=== PATIENT | female | born 1940 | race Caucasian/White ===

== ENCOUNTER 2016-03-21 16:25 | Inpatient (IN) | payer OTHER ==
--- NOTE | 2016-03-21 17:20 | CPEKG ---
Heart Rate: 71 RR Interval: 845 P-R Interval: 164 QRSD Interval: 72 QT Interval: 400 QTC Interval: 435 P Mesa: 60 QRS Mesa: 18 T Wave Mesa: 27 EKG Severity - NORMAL ECG - EKG Impression: SINUS RHYTHM Electronically Signed By: Vijay Fox 21-Mar-2016 17:29:48
[2016-03-21 17:27] LABS: % IMMATURE GRANULYOCYTES 0.2 % (0.0-1.1); ABSOLUTE IMMATURE GRANULOCYTES 0.01 10^3/uL (0.00-0.10); ADD DIFF? NO; ADD MORPH? NO; ADD SCAN? NO; ATYPICAL LYMPHOCYTE FLAG 0 (0-99); FRAGMENT RBC FLAG 0 (0-99); HEMATOCRIT 43.7 % (38.0-47.0); HEMOGLOBIN 15.5 g/dL (12.6-16.3); LEFT SHIFT FLG 0 (0-99); LIPEMIA HEMOLYSIS FLAG 90 (0-99); MEAN CELL HEMOGLOBIN 32.2 pg (27.9-34.1); MEAN CELL HEMOGLOBIN CONCENTR. 35.5 g/dL (32.4-36.7); MEAN CELL VOLUME 90.9 fL (81.5-99.8); MEAN PLATELET VOLUME 9.4 fL (8.7-11.7); PLATELET CLUMPS FLAG 0 (0-99); PLATELET COUNT 185 10^3/uL (150-400); RED BLOOD CELL COUNT 4.81 10^6/uL (4.18-5.33); RED CELL DISTRIBUTION WIDTH 13.6 % (11.5-15.2)
--- NOTE | 2016-03-21 17:31 | EDPHY ---
H & P Stated Complaint: Intermittent tachycardia since Thu;sent here from [facility] for eval Time Seen by Provider: 03/21/16 17:05 HPI/ROS: CHIEF COMPLAINT: "'Left neck pulling," rapid heart rate HISTORY OF PRESENT ILLNESS: The patient is a 75 y/o female, with a significant cardiac history, complaining of a pulling sensation in her left neck and intermittent rapid heart rate since Thursday, 3 days ago. She notes some extreme fatigue on Thursday before symptom onset without associated fever or cough. She describes the pulling sensation as similar to previous angina episodes and denies chest pain. During this time she's experienced some elevated blood pressure readings in the 160s systolic and an episode of diaphoresis. Her last episode of rapid heart rate was this morning. She denies trauma, nausea, vomiting, leg pain or swelling, shortness of breath, rashes, or dysuria. She has not recently changed her medications. Her history including CAD with 3 stents, hypertension, and DVT. She had a normal perfusion study March 2015 during admission for chest pain. REVIEW OF SYSTEMS: Constitutional: denies: chills, fever, recent illness, recent injury EENTM: denies: blurred vision, double vision, nose congestion Respiratory: denies: cough, shortness of breath Cardiac: denies: chest pain, irregular heart rate, lightheadedness, palpitations Gastrointestinal/Abdominal: denies: abdominal pain, diarrhea, nausea, vomiting, blood streaked stools Genitourinary: denies: dysuria, frequency, hematuria, pain Musculoskeletal: denies: joint pain, muscle pain Skin: denies: lesions, rash, jaundice, bruising Neurological: denies: headache, numbness, paresthesia, tingling, dizziness, weakness Hematologic/Lymphatic: denies: blood clots, easy bleeding, easy bruising Immunologic/allergic: denies: HIV/AIDS, transplant PRIOR MEDICAL HISTORY: CAD, stents in RCA in 2013 and left circumflex 2014, cath from February 2015 showed 40% lesion left main and 30% lesion first diagonal, angina, cath April 2015 showed distal right coronary disease, hypertension, dyslipidemia, hypothyroidism, anxiety, DVT, gastritis, arthritis, bronchitis, salivary gland cancer 1979, IBS, Osteopenia, knee surgery, breast biopsy, cholecystectomy, hip replacement, hysterectomy SOCIAL HISTORY: at bedside. Nonsmoker. Brewery Representative: Dr. Francoise Sandy Prior medical records reviewed including admission 04/05/[address] for chest pain and Dr. Sandy's note from office visit today. EXAM: GENERAL: Well-appearing, well-nourished and in no acute distress. HEAD: Atraumatic, normocephalic. EYES: Pupils equal round and reactive to light, extraocular movements intact, sclera anicteric, conjunctiva are normal. ENT: TMs normal, nares patent, oropharynx clear without exudates. Moist mucous membranes. NECK: Normal range of motion, supple without lymphadenopathy or JVD. LUNGS: Breath sounds clear to auscultation bilaterally and equal. No wheezes rales or rhonchi. HEART: Regular rate and rhythm without murmurs, rubs or gallops. ABDOMEN: Soft, nontender, normoactive bowel sounds. No guarding, no rebound. No masses appreciated. BACK: No CVA tenderness, no spinal tenderness, step-offs or deformities EXTREMITIES: Normal range of motion, no pitting or edema. No clubbing or cyanosis. NEUROLOGICAL: Cranial nerves II through XII grossly intact. Normal speech, normal gait. 5/5 strength, normal movement in all extremities, normal sensation PSYCH: Normal mood, normal affect. SKIN: Warm, dry, normal turgor, no visible rashes or lesions. Source: Patient, RN/MD - Personal History Current Tetanus Diphtheria and Acellular Pertussis (TDAP): Yes Tetanus Vaccine Date: last 10 years - Medical/Surgical History Hx Asthma: No Hx Chronic Respiratory Disease: No Hx Diabetes: No Hx Cardiac Disease: Yes Hx Renal Disease: No Hx Cirrhosis: No Hx Alcoholism: No Hx HIV/AIDS: No Hx Splenectomy or Spleen Trauma: No Other PMH: MEDICAL-HTN, HYPOTHYRIOD. SURGERY- ORTHO, TONSILS, SAMIR, HYSTERECTOMY, STENT X2 last week - Family History Significant Family History: Heart disease - Social History Smoking Status: Former smoker Alcohol Use: Sober Drug Use: None Constitutional: Initial Vital Signs Temperature (C) 36.7 C 03/21/16 16:26 Heart Rate 79 03/21/16 16:26 Respiratory Rate 18 03/21/16 16:26 Blood Pressure 152/85 H 03/21/16 16:26 O2 Sat (%) 94 03/21/16 16:26 O2 Delivery Mode Room Air Allergies/Adverse Reactions: codeine [Codeine] Allergy (Intermediate, Verified 03/21/16 16:30) STOMACH PAIN flu shots Allergy (Unknown, Uncoded 03/21/16 16:30) Home Medications: Medication Instructions Recorded Metoprolol Tartrate [Lopressor 25 12.5 mg PO BID 06/29/14 mg (*)] Tears/Hypromellose [Natural 1 - 2 drops EACHEYE QID 01/10/15 Balance] Nitroglycerin [Nitrostat 0.4 mg 0.4 mg SL PRN PRN 02/24/15 (*)] amLODIPine BESYLATE [Norvasc 10 mg 10 mg PO DAILY #30 tab 02/25/15 (*)] Acetamn/Diphenhydramine 500/25 1 each PO HS 03/21/16 [Tylenol PM (*)] Ascorbic Acid [Vitamin C 500 mg 500 mg PO DAILY 03/21/16 (*)] Aspirin EC [Aspirin EC 81 mg (*)] 81 mg PO BID 03/21/16 Atorvastatin Calcium [Lipitor 10 5 mg PO DAILY18 03/21/16 mg (*)] Imipramine HCl [Tofranil] 10 mg PO DAILY PRN 03/21/16 Melatonin [Melatonin 3 MG (*)] 3 mg PO HS 03/21/16 Multivitamins [Multivitamin (*)] 1 each PO DAILY 03/21/16 Ranitidine HCl [Zantac] 150 mg PO BID 03/21/16 Thyroid,Pork [[place] Thyroid] 90 mg PO DAILY10 03/21/16 Medical Decision Making - Diagnostics EKG Interpretation: The 12 lead EKG was interpreted by myself. EKG shows sinus rhythm, no ischemia. See hard copy and/or "tracemaster" electronic copy for interpretation. Imaging: Study: Chest x-ray Indication: pain Results: Chest x-ray was obtained. The results of the study are Mild peribronchial thickening that could be related to bronchitis or mild fluid overload. The study was read by the radiologist, Dr. Christianson. I viewed the images myself on the PACS system. Study: CTA of the Chest Indication: Elevated d-dimer, pain Results: CTA scan of the chest was obtained. The results of the study are negative. The study was read by the radiologist, . I viewed the images myself on the PACS system. ED Course/Re-evaluation: MDM: IV established. Labs drawn including CBC, CHEM, troponin, d-dimer, TSH, T4. Plan for EKG and chest x-ray. Chest x-ray is unremarkable. D-dimer is elevated. Recommended CTA, which patient agreed to. 1838: CTA is negative. I discussed these results with the patient. She continues to have symptoms currently. Given her history, we agreed the best decision is to admit for further observation and testing. 19:50 I discussed the case with Dr. Dylan Pompa who will admit to the medical service. Differential Diagnosis: DIFFERENTIALS: Partial list of the Differential diagnosis considered include but were not limited to: [] and although unlikely based on the history and physical exam, I also considered []. I discussed these differential diagnoses and the plan with the [patient] as well as the usual and expected course. The [patient understands] that the diagnosis is provisional and that in medicine we are not always correct and that further workup is often warranted. Usual and customary warnings were given. All of the [patient's] questions were answered. The [ patient was] instructed to return to the emergency department should the symptoms at all worsen or return, otherwise to follow up with the physician as we discussed. - Data Points Laboratory Results: Laboratory Results 03/21/16 17:05 03/21/16 17:05 03/21/16 17:05 WBC 4.60 10^3/uL (3.80-9.50) RBC 4.81 10^6/uL (4.18-5.33) Hgb 15.5 g/dL (12.6-16.3) Hct 43.7 % (38.0-47.0) MCV 90.9 fL (81.5-99.8) MCH 32.2 pg (27.9-34.1) MCHC 35.5 g/dL (32.4-36.7) RDW 13.6 % (11.5-15.2) Plt Count 185 10^3/uL (150-400) MPV 9.4 fL (8.7-11.7) Neut % (Auto) 60.4 % (39.3-74.2) Lymph % (Auto) 24.8 % (15.0-45.0) [place] % (Auto) 12.4 % (4.5-13.0) Eos % (Auto) 1.5 % (0.6-7.6) Baso % (Auto) 0.7 % (0.3-1.7) Nucleat RBC Rel Count 0.0 % (0.0-0.2) Absolute Neuts (auto) 2.78 10^3/uL (1.70-6.50) Absolute Lymphs (auto) 1.14 10^3/uL (1.00-3.00) Absolute Monos (auto) 0.57 10^3/uL (0.30-0.80) Absolute Eos (auto) 0.07 10^3/uL (0.03-0.40) Absolute Basos (auto) 0.03 10^3/uL (0.02-0.10) Absolute Nucleated RBC 0.00 10^3/uL (0-0.01) Immature Gran % 0.2 % (0.0-1.1) Immature Gran # 0.01 10^3/uL (0.00-0.10) D-Dimer 0.63 H ug/mLFEU (0.00-0.50) Sodium 141 mEq/L (134-144) Potassium 3.5 mEq/L (3.5-5.2) Chloride 104 mEq/L (97-110) Carbon Dioxide 27 mEq/l (22-31) Anion Gap 10 mEq/L (8-16) BUN 15 mg/dL (7-23) Creatinine 0.6 mg/dL (0.6-1.0) Estimated GFR > 60 Glucose 78 mg/dL (70-100) Calcium 9.2 mg/dL (8.5-10.4) Troponin I < 0.012 ng/mL (0-0.034) TSH 2.470 uIU/mL (0.465-4.680) Free T4 0.82 ng/dL (0.59-2.19) Departure - Departure Disposition: [facility] Inpatient Acute Clinical Impression: Chest pain Qualifiers: Qualifier Code: (R07.89) Other chest pain Condition: Fair Report Scribed for: Vijay Fox Report Scribed by: Pam Contreras Date of Report: 03/21/16 Time of Report: 17:31
[2016-03-21 17:35] LABS: ANION GAP 10 mEq/L (8-16); CALCIUM 9.2 mg/dL (8.5-10.4); CARBON DIOXIDE 27 mEq/l (22-31); CHLORIDE 104 mEq/L (97-110); CREATININE 0.6 mg/dL (0.6-1.0); GLOMERULAR FILTRATION RATE > 60; GLUCOSE 78 mg/dL (70-100); POTASSIUM 3.5 mEq/L (3.5-5.2); SODIUM 141 mEq/L (134-144)
--- NOTE | 2016-03-21 17:41 | DX ---
Portable chest History: Chest pain, tachycardia. Comparison: PA and lateral chest April 05, 2015, CT chest January 23, 2014. Findings: There is mild peribronchial thickening without focal consolidation. There is no pneumothora x or pleural effusion. The heart and pulmonary vasculature are normal. The bones appear grossly stabl e. Impression: Mild peribronchial thickening that could be related to bronchitis or mild fluid overload.
[2016-03-21 17:49] LABS: TROPONIN I < 0.012 ng/mL (0-0.034)
[2016-03-21] MEDS ORDERED: IOPAMIDOL (ISOVUE 370) 100 ML BTL IV ONE (18:59)
--- NOTE | 2016-03-21 19:40 | CT ---
CT of the Chest With Contrast (CT Pulmonary Angiogram) March 21, 2016 Clinical History: Chest pain Technique: Thinly collimated multidetector helical CT imaging was performed through the chest while 90 mL of Isovue-370 were injected intravenously without complication. The images were then transferr ed to an independent workstation where multiplanar and three-dimensional reconstructions were perform ed by the interpreting physician and reviewed at multiple windows. Dose reduction techniques were uti lized. Findings: Lung Windows: Mild atelectasis present in the right lower lobe. No focal infiltrate or pleural effusi on. No lung mass identified. Mediastinal Windows: No significant mediastinal or axillary lymphadenopathy identified. No significan t pleural disease identified. Prior cholecystectomy. The upper abdomen is otherwise negative. CT Pulmonary Angiogram: The visualized pulmonary arterial segments appear normal without filling defe ct to suggest acute pulmonary thromboembolic disease. Impression: Negative CT examination of the chest for acute pulmonary thromboembolic disease. Results called to Dr. Fox at 7:35 p.m. at the time of the interpretation.
[2016-03-21] MEDS ORDERED: ACETAMINOPHEN 325 MG TAB PO PRN (20:17)
--- NOTE | 2016-03-21 20:22 | PDGENHP ---
History and Physical - Chief Complaint Acute neck pain - History of Present Illness PCP: Dr. Chappell Primary certified master locksmith: Dr. Rutledge HPI: 75-year-old female presenting with acute neck pain characterized as a pulling sensation located on her left anterior neck with associated anxiety regarding her blood pressure and heart rate. She reports that her systolic blood pressure was around 168 and her heart rate was around 104. The onset of the symptoms were 2 days ago and they were alleviated without intervention, duration was intermittent thereafter. They reoccurred on the day prior to this presentation and then again on the day of this presentation leading to the patient contacting [facility] and requesting evaluation. Apparently her anginal symptoms in the past were insidious in a similar way and this has led to significant concerns from the patient whenever she experiences any physical symptoms which are abnormal. She has otherwise been taking all of her home medications as prescribed and she denies any overt chest pain, fever, chills, shortness of breath. History Information - Allergies/Home Medication List Allergies/Adverse Reactions: codeine [Codeine] Allergy (Intermediate, Verified 03/21/16 16:30) STOMACH PAIN flu shots Allergy (Unknown, Uncoded 03/21/16 16:30) Home Medications: Thyroid [[place] Thyroid 60 MG (*)] 60 mg PO Q2D@09/07/12 [Last Taken 04/04/15 ] Metoprolol Tartrate [Lopressor 25 mg (*)] 12.5 mg PO BID 06/29/14 [Last Taken ] Thyroid [[place] Thyroid 60 MG (*)] 90 mg PO Q2D@06/29/14 [Last Taken 04/05/15 ] Tears/Hypromellose [Natural Balance] 1 - 2 drops EACHEYE QID 01/10/15 [Last Taken 04/05/15] Atorvastatin Calcium [Lipitor 10 mg (*)] 10 mg PO HS 02/24/15 [Last Taken ] Nitroglycerin [Nitrostat 0.4 mg (*)] 0.4 mg SL PRN PRN 02/24/15 [Last Taken ] Aspirin [Aspirin 81mg (*)] 81 mg PO HS 04/05/15 [Last Taken 04/04/15] Ranitidine HCl 300 mg PO HS 04/05/15 [Last Taken 04/04/15] I have personally reviewed and updated: family history, medical history, social history, surgical history - Past Medical History coronary artery disease (With previous cardiac stents as well as known 40% stenosis in left main and 40% on an RCA ostial branch, previously did not tolerate Ranexa, previously on Imdur but no longer), hypertension, hyperlipidemia Additional medical history: Hypothyroidism, deep venous thromboses, irritable bowel syndrome, osteoarthritis, submandibular adenocarcinoma - Surgical History Additional surgical history: Bilateral hip surgery, left neck surgery, breast biopsy, cholecystectomy - Family History Additional family history: Family members with coronary artery disease - Social History Smoking Status: Former smoker Alcohol Use: None Drug Use: None Additional social history: Normally independent in her ADLs Review of Systems ROS: 10pt was reviewed & negative except for what was stated in HPI & below EENMT: Reports: other (Neck pain) Neurological: Reports: other (Anxiety) Physical Exam Temp Pulse Resp BP Pulse Ox 36.7 C 83 18 131/88 H 93 03/21/16 16:26 03/21/16 20:00 03/21/16 20:00 03/21/16 20:00 03/21/16 20:00 Constitutional: no apparent distress, appears nourished, not in pain, No uncomfortable Eyes: PERRL, anicteric sclera, EOMI Ears, Nose, Mouth, Throat: moist mucous membranes, hearing normal, ears appear normal, no oral mucosal ulcers, other (Post surgical left neck) Cardiovascular: regular rate and rhythym, no murmur, rub, or gallop, No irregularly irregular, No carotid bruit, No tachycardia, No edema Respiratory: no respiratory distress, no rales or rhonchi, clear to auscultation Gastrointestinal: normoactive bowel sounds, soft, non-tender abdomen, no palpable masses, other (No abdominal bruits) Skin: other (Patient skin on her left neck appears to be somewhat red and she continuously rubs it, no soft tissue edema or tenderness) Musculoskeletal: other (Full range of motion of the neck without pain limited range of motion in the left shoulder to approximately 100 degrees) Neurologic: AAOx3 (With subsequent pain), sensation intact bilaterally, No weakness, No facial droop Psychiatric: interacting appropriately, not encephalopathic, thought process linear, anxious, No agitated Lab Data & Imaging Review 03/21/16 17:05 03/21/16 17:05 WBC 4.60 10^3/uL (3.80-9.50) 03/21/16 17:05 RBC 4.81 10^6/uL (4.18-5.33) 03/21/16 17:05 Hgb 15.5 g/dL (12.6-16.3) 03/21/16 17:05 Hct 43.7 % (38.0-47.0) 03/21/16 17:05 MCV 90.9 fL (81.5-99.8) 03/21/16 17:05 MCH 32.2 pg (27.9-34.1) 03/21/16 17:05 MCHC 35.5 g/dL (32.4-36.7) 03/21/16 17:05 RDW 13.6 % (11.5-15.2) 03/21/16 17:05 Plt Count 185 10^3/uL (150-400) 03/21/16 17:05 MPV 9.4 fL (8.7-11.7) 03/21/16 17:05 Neut % (Auto) 60.4 % (39.3-74.2) 03/21/16 17:05 Lymph % (Auto) 24.8 % (15.0-45.0) 03/21/16 17:05 [place] % (Auto) 12.4 % (4.5-13.0) 03/21/16 17:05 Eos % (Auto) 1.5 % (0.6-7.6) 03/21/16 17:05 Baso % (Auto) 0.7 % (0.3-1.7) 03/21/16 17:05 Nucleat RBC Rel Count 0.0 % (0.0-0.2) 03/21/16 17:05 Absolute Neuts (auto) 2.78 10^3/uL (1.70-6.50) 03/21/16 17:05 Absolute Lymphs (auto) 1.14 10^3/uL (1.00-3.00) 03/21/16 17:05 Absolute Monos (auto) 0.57 10^3/uL (0.30-0.80) 03/21/16 17:05 Absolute Eos (auto) 0.07 10^3/uL (0.03-0.40) 03/21/16 17:05 Absolute Basos (auto) 0.03 10^3/uL (0.02-0.10) 03/21/16 17:05 Absolute Nucleated RBC 0.00 10^3/uL (0-0.01) 03/21/16 17:05 Immature Gran % 0.2 % (0.0-1.1) 03/21/16 17:05 Immature Gran # 0.01 10^3/uL (0.00-0.10) 03/21/16 17:05 D-Dimer 0.63 ug/mLFEU (0.00-0.50) H 03/21/16 17:05 Sodium 141 mEq/L (134-144) 03/21/16 17:05 Potassium 3.5 mEq/L (3.5-5.2) 03/21/16 17:05 Chloride 104 mEq/L (97-110) 03/21/16 17:05 Carbon Dioxide 27 mEq/l (22-31) 03/21/16 17:05 Anion Gap 10 mEq/L (8-16) 03/21/16 17:05 BUN 15 mg/dL (7-23) 03/21/16 17:05 Creatinine 0.6 mg/dL (0.6-1.0) 03/21/16 17:05 Estimated GFR > 60 03/21/16 17:05 Glucose 78 mg/dL (70-100) 03/21/16 17:05 Calcium 9.2 mg/dL (8.5-10.4) 03/21/16 17:05 Troponin I < 0.012 ng/mL (0-0.034) 03/21/16 17:05 TSH 2.470 uIU/mL (0.465-4.680) 03/21/16 17:05 Free T4 0.82 ng/dL (0.59-2.19) 03/21/16 17:05 Visualized and Interpreted EKG results: Yes EKG Interpretation: Positive for: other (Normal sinus rhythm with Q-wave in lead 3) Assessment & Plan Assessment: 75-year-old female presents with acute neck pain in the setting of known coronary artery disease, hypertension Plan: 1. Neck pain. Acute, new problem this provider, further workup indicated. Potential anginal symptom given patient's previously insidious anginal symptoms which required PCI -reviewed outside records including discharge summary by Dr. Chad Steiner from , reports that at that time patient's chest pain was felt to potentially be secondary to vasospasms she was initiated on Imdur at that time in the setting of a normal nuclear stress test and no indication for PCI, she also had bilateral carotid stenosis but no flow limiting plaque -given the patient's most recent vascular imaging was less than 1 year ago, I would not recommend repeating at this time, as she also reports that she is routinely monitored by a Dr. Spencer in [place] -I have discussed the patient's presentation with Dr. Fox, he reports to me that certified master locksmith Dr. Sandy has recommended a nuclear medicine stress test in the a.m. for risk stratification given her underlying coronary disease -will continue on telemetry to monitor for tachyarrhythmias as well as cycle her cardiac enzymes -Tylenol as needed 2. Hypertension. Chronic, patient reports systolic blood pressure is elevated in the 160s in the setting of anxiety and discomfort over the past couple days -I educated the patient and her that while systolic blood pressures in the 160 range are not ideal over the long-term they do not have any short-term significant health risks and are most likely a reflection of her anxiety and discomfort which are situationally related -given that her systolic blood pressure is currently 130 I would not recommend any further adjustments to her home antihypertensive regimen we can continue to monitor blood pressure overnight to help determine the best strategy for her blood pressure medications moving forward -I would recommend continuing to educated the patient and her that fluctuations in blood pressure occur on a regular basis and are more prone to occur if the patient is particularly anxious or compulsively monitoring the blood pressure, and that she should keep a regular blood pressure log at home and be reassured that she can address these numbers with her outpatient providers on a regular basis 3. Coronary artery disease. Chronic, getting nuclear medicine stress test to evaluate for any potential obstructive disease as outlined above -continue home medications 4. Hypothyroidism. Patient's tachycardia was most likely situationally related and not secondary to uncontrolled thyroid disease as her TSH and free T4 level are both within normal limits Diet. Cardiac diet, NPO after midnight Prophylaxis. Low risk patient, SCDs overnight Code. Full Disposition. Anticipated discharge is 03/22/2016, pending further workup and stabilization of the issues outlined above.
[2016-03-21] MEDS ORDERED: Imipramine Hcl [Tofranil] 10 MG PO PRN (22:16)
[2016-03-21] MEDS ORDERED: NITROGLYCERIN 0.4 MG BTL SL PRN (22:16)
[2016-03-21] MEDS ORDERED: NON-FORMULARY NEW DRUG (Ranitidine Hcl [Zantac] 150 MG) PO SCH (22:30)
[2016-03-21] MEDS: ACETAMN/DIPHENHYDRAMINE 500/25MG TAB PO SCH (23:10)
[2016-03-21] MEDS: FAMOTIDINE 20 MG TAB PO SCH (23:10)
[2016-03-21] MEDS: METOPROLOL TARTRATE 25 MG TAB PO SCH (23:11)
[2016-03-21] MEDS: ASPIRIN EC 81 MG TAB PO SCH (23:11)
[2016-03-21] MEDS: ATORVASTATIN CALCIUM 10 MG TAB PO SCH (23:11)
[2016-03-22] MEDS: TEARS/DEXTRAN 70/HYPROMELLOSE 15 ML OPHT.BTL EACHEYE SCH ×5 (00:12→23:03)
[2016-03-22] MEDS: MELATONIN 3 MG TAB PO SCH ×2 (00:12→21:37)
[2016-03-22] MEDS ORDERED: NON-FORMULARY NEW DRUG (Tears/Hypromellose [Natural Balance] 0 DROPS) EACHEYE SCH (06:00)
[2016-03-22] MEDS ORDERED: ASCORBIC ACID 500 MG TAB PO SCH (09:00)
[2016-03-22] MEDS ORDERED: MULTIVITAMINS 1 EACH TAB PO SCH (09:00)
[2016-03-22] MEDS ORDERED: NON-FORMULARY NEW DRUG (Thyroid,Pork [Armour Thyroid] 90 MG) PO SCH (10:00)
[2016-03-22] MEDS ORDERED: THYROID 60 MG TAB PO SCH (10:00)
[2016-03-22] MEDS ORDERED: REGADENOSON 0.4 MG/5 ML SYR IVP ONE (11:41)
--- NOTE | 2016-03-22 12:43 | CPIP ---
[f rep st] INVASIVE CARDIAC PROCEDURE DATE OF PROCEDURE: 03/22/2016 INDICATIONS: Symptoms concerning for angina in a patient with known coronary disease and history of multivessel PCI. COMPLICATIONS: None. PROCEDURE: Informed consent was obtained. The patient was monitored continuously and had frequent b lood pressure monitoring. She received Lexiscan infusion per protocol as well as technetium injectio n from Nuclear Medicine. She tolerated the procedure well, but did complain of headache and abdomina l pain that subsided towards the end of the recovery. FINDINGS: 1. The resting EKG was normal sinus rhythm. 2. Heart rate at rest was 74 beats per minute and at peak was 108 beats per minute. Resting blood p ressure 144/77, at peak pharmacological effect, blood pressure was 123/71. Oxygen saturation remaine d normal. 3. There were no ischemic ST changes. No arrhythmias. 4. Expected hemodynamic response to Lexiscan infusion. CONCLUSION: Successful Lexiscan stress test. Nuclear images pending. /[id number]/MODL
--- NOTE | 2016-03-22 14:08 | HOSPPROG ---
Hospitalist Progress Note Assessment/Plan: Assessment: 75-year-old female presents with acute neck pain in the setting of known coronary artery disease 1. Neck pain -neg troponins -stress images abnormal await rest images tomorrow 2. Hypertension 3. Coronary artery disease. Chronic, getting nuclear medicine stress test to evaluate for any potential obstructive disease as outlined above -continue home medications 4. Hypothyroidism. Patient's tachycardia was most likely situationally related and not secondary to uncontrolled thyroid disease as her TSH and free T4 level are both within normal limits Diet. Cardiac diet, NPO after midnight Prophylaxis. Low risk patient, SCDs overnight Code. Full Disposition. change to inpatient status since further diagnostics are indicated. case discussed with Dr. Sandy from cardiology who is in agreement Subjective: no neck dismcomft. no chest pain. no sob Objective: Vital Signs Temp Pulse Resp BP Pulse Ox 36.8 C 74 16 121/73 H 91 L 03/22/16 11:22 03/22/16 11:22 03/22/16 11:22 03/22/16 11:22 03/22/16 11:22 gen nad cv rrr pulm clear abd soft +bs ext no edema ICD10 Worksheet Patient Problems: Problems Problem Status Diagnosed Chest pain Acute Chest pain radiating to arm Acute CAD S/P percutaneous coronary angioplasty Acute Chest pain in adult Acute Palpitation Acute
[2016-03-22] MEDS: ASPIRIN EC 81 MG TAB PO SCH ×2 (14:10→21:39)
[2016-03-22] MEDS: FAMOTIDINE 20 MG TAB PO SCH ×2 (14:10→21:38)
[2016-03-22] MEDS: METOPROLOL TARTRATE 25 MG TAB PO SCH ×2 (14:11→21:39)
[2016-03-22] MEDS: ATORVASTATIN CALCIUM 10 MG TAB PO SCH ×2 (18:10→21:38)
[2016-03-22 21:37] VITALS: O2SAT 92
[2016-03-22] MEDS: ACETAMN/DIPHENHYDRAMINE 500/25MG TAB PO SCH (21:41)
[2016-03-23] MEDS: TEARS/DEXTRAN 70/HYPROMELLOSE 15 ML OPHT.BTL EACHEYE SCH (06:26)
--- NOTE | 2016-03-23 10:55 | PDCARPN ---
Cardiology Progress Note Assessment/Plan: Assessment/plan: 75 yo F with CAD s/p LCx and RCA stenting; HTN. Admitted with symptoms concerning for angina. negative troponins, normal ECG. Symptoms resolved. BP normal. 1. CAD/CP: low risk nuc. Reviewed images with radiology. LIkely inferolateral artifact; less likely infarct. Normal LVEF. Continue med mx. Follow up as scheduled 2. HTN: well controlled. 3. LIpids: on statin 4. Anxiety: seems to be playing a role in her symptoms, patient agrees. Follow up with Dr. Ta Townsend for discharge from a cardiac standpoint. 03/23/16 11:31 Subjective: Rosmery has no neck pain, CP, or SOB Reviewed/Discussed With: hospitalist Objective: Vital Signs (8 Hrs) Temp Pulse Resp BP Pulse Ox 03/23/16 08:00 36.6 C 66 16 106/69 92 NAD JVP <10 RRR no m/r/g Lungs CTAB No edema Result Diagrams: 03/21/16 17:05 03/21/16 17:05 Telemetry: NSR with rare PVCs ICD10 Worksheet Patient Problems: Problems Problem Status Diagnosed Chest pain Acute Chest pain radiating to arm Acute CAD S/P percutaneous coronary angioplasty Acute Chest pain in adult Acute Palpitation Acute
--- NOTE | 2016-03-23 11:30 | NM ---
Nuchal Medicine Myocardial Perfusion Scan Clinical History: 75-year-old female admitted with chest pain with a known coronary disease history a nd multivessel PCI. The patient had 3 negative serum troponin levels. Evaluate for myocardial ischemi a. Radiopharmaceutical: 25.0 mCi of IV technetium 99m sestamibi Cardiolite (stress portion) and 20.7 mC i of IV technetium 99m sestamibi (rest portion). Medical Pharmaceutical: 0.4 mg of IV Lexiscan. Technique: Following the respective stress and rest sequences, images were acquired tomographically and reconstructed along the standard cardiac axes and reviewed on the computer PACS workstation using [employer] [facility] software. Comparison Study: Nuclear medicine myocardial perfusion scan, dated April 06, 2015. Findings: As on the previous study, there is a relatively fixed small inferolateral junction perfusi on defect, with no additional perfusion at rest to suggest ischemia. The left ventricular cavity size is normal, and the left ventricular contractility is normal. I reviewed these findings with Dr. Michelle Sandy. Impression: Small fixed inferolateral perfusion defect, with no additional perfusion to suggest mild cardial ischemia, and relatively unchanged from April 06, 2015. A test result has been communicated to a licensed care provider and documented in [employer], 11:02:26 A M, 03/23/2016, [employer] Message ID [id number].
[2016-03-23 11:40] VITALS: BP 125/88; PULSE 76; RESP 17; TEMP 97.5
--- NOTE | 2016-03-23 13:14 | GDS ---
[f rep st] DISCHARGE SUMMARY DISCHARGE DIAGNOSES: 1. Neck pain unlikely related to acute coronary syndrome. 2. Coronary artery disease with myocardial perfusion scan that was read as low risk for reversible i schemia or infarct. 3. Controlled hypertension. 4. Dyslipidemia. 5. Anxiety. CONSULTANTS: Dr. Francoise Sandy, [facility]. HOSPITAL COURSE AND STAY BY PROBLEM: Neck discomfort: This patient was admitted to the hospital due to concern for acute coronary syndrome. Serial troponins were done that were unremarkable. Stress myocardial perfusion scan was done on 03/22/2016 that was abnormal with a small fixed inferior latera l perfusion defect. She was kept in the hospital until March 23 so rest images could be done which did not reveal any signs of myocardial ischemia. Her study was unchanged from April 06, 2015. On day of discharge, the patient is chest pain-free and is agreeable to be discharged home. PHYSICAL EXAMINATION ON DAY OF DISCHARGE: VITAL SIGNS: Blood pressure 125/88, pulse 76, respiratory rate 17, O2 saturation 92% on room air. Temperature afebrile. GENERAL: No acute distress. HEART: S1, S2. LUNGS: Clear. DISCHARGE MEDICATIONS: Please refer to discharge medication reconciliation in [facility] for details. DISCHARGE INSTRUCTIONS: The patient will be discharged from the hospital where she should follow up with her primary care doctor as well as analytical engineer for routine hospital followup. /[id number]/MODL
== END 2016-03-23 12:10 | disposition home or self-care (01) | DRG 552 ==
LOC: F1N 20:54 → OBSVTOIN 03-22 14:08
PROVIDERS: ADMIT Internal Medicine; ATTEND Internal Medicine
DX: M54.2 Cervicalgia (principal); I25.10 Atherosclerotic heart disease of native coronary artery without angina pectoris; I10 Essential (primary) hypertension; E78.5 Hyperlipidemia, unspecified; F41.9 Anxiety disorder, unspecified; E03.9 Hypothyroidism, unspecified; Z87.891 Personal history of nicotine dependence
CPT/HCPCS: A9500; G0378; J2785; Q9967

== ENCOUNTER → 2016-03-26 | Outpatient (CLI) | payer OTHER ==
--- NOTE | 2016-03-26 09:15 | US ---
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 Technique: Longitudinal and transverse ultrasound imaging of the thyroid gland. Findings: Right lobe of the thyroid measures 3.2 x 1.1 x 1 cm. Left lobe of the thyroid measures 3.5 x 1.4 x 1 cm. Isthmic thickness is 0.2 cm. Diffusely heterogeneous small thyroid gland without evidence of focal discrete nodules. Impression: Small heterogeneous thyroid gland without focal nodules.
== END ==
LOC: FIMAGING 07:52
PROVIDERS: ATTEND Internal Medicine
DX: E03.9 Hypothyroidism, unspecified (principal); Z85.858 Personal history of malignant neoplasm of other endocrine glands

== ENCOUNTER → 2016-12-20 | Outpatient (CLI) | payer OTHER | LOC: FIMAGING 07:57 | PROVIDERS: ATTEND Hospitalist | DX: Z12.31 Encounter for screening mammogram for malignant neoplasm of breast (principal) | CPT/HCPCS: G0202 ==

== ENCOUNTER → 2017-05-12 | Outpatient (CLI) | payer OTHER | LOC: FIMAGING 11:03 | PROVIDERS: ATTEND Physician Assistant | DX: R29.4 Clicking hip (principal); M47.897 Other spondylosis, lumbosacral region; M24.9 Joint derangement, unspecified; Z96.641 Presence of right artificial hip joint ==

== ENCOUNTER 2017-12-15 12:39 | Day surgery (SDC) | payer OTHER ==
--- NOTE | 2017-12-14 15:12 | PDGENHP ---
History & Physical Chief Complaint: Right knee medial meniscal tear History of Present Illness: Rosmery is a pleasant 77 year old female who presented to the office with right knee pain after an injury dancing. She was found to have medial meniscal tear of the right knee. Risks, benefits, and alternatives to conservative and surgical treatment were discussed and she would like to proceed with surgical intervention. Pertinent Past, Social, Family History: PMH: arthritis, CAD, GERD, HTN, multiple cardiac stents, thyroid issues. Social History: non-smoker. Famiy history: non-contributory Relevant Physical Exam: Upon evaluation of her right knee, she has a palpable effusion. TTP overlying the medial> lateral joint line. + Medial Nelson. Samir is negative and she is stable to varus and valgus stress. ROM from 0-80 with pain at extreme flexion. Mild pain with patellar compression. Calf is soft to compression without pain. NV intact Cardiorespiratory Assessment: RRR, CTAB
--- NOTE | 2017-12-15 07:14 | PDHPUP ---
History & Physical Update H&P update statement: This history and physical update is based on an assessment of the patient which was completed after admission or registration (within 24 hours), but prior to the surgery/procedure. H&P update: H&P reviewed & patient examined, no change in patient's condition since H&P completed
[2017-12-15] MEDS ORDERED: ceFAZolin 2 GM/DEXTROSE 100 ML IV ONE (13:01)
[2017-12-15] MEDS ORDERED: LIDOCAINE 1% 2 ML INJ ID PRN (13:02)
[2017-12-15] MEDS ORDERED: LR 1,000 ML IV ONE ×2 (13:02→13:08)
[2017-12-15] MEDS ORDERED: BUPIVACAINE/EPI 0.5% 30 ML SDV ONE (13:52)
--- NOTE | 2017-12-15 13:52 | POSTANESTH ---
Post Anesthetic Evaluation Cardiovascular Status: Normal, Stable Respiratory Status: Normal, Stable Level of Consciousness/Mental Status: Can Participate in Eval, Moderately Sleepy Pain Control: Adequate, Prn Tx Ordered Nausea/Vomiting Control: Adequate, Prn Tx Ordered Complications Possibly Related to Anesthesia: None Noted
--- NOTE | 2017-12-15 13:56 | PDANEPAE ---
ANE History of Present Illness 77 yo female for knee scope. ANE Past Medical History - Cardiovascular History Hx Hypertension: Yes Hx Arrhythmias: No Hx Chest Pain: No Hx Coronary Artery / Peripheral Vascular Disease: Yes Hx CHF / Valvular Disease: No Hx Palpitations: Yes Cardiovascular History Comment: htn. hyperlipidemia. cad with stents. hospitalized at [facility] 03/22/16-03/23/16 for neck pain - note says it was probably anxiety related; troponins negative, EKG negative, stress test - low prob of ischemia. 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 - Pulmonary History Hx COPD: No Hx Asthma/Reactive Airway Disease: No Hx Recent Upper Respiratory Infection: No Hx Oxygen in Use at Home: No Hx Sleep Apnea: No Sleep Apnea Screening Result - Last Documented: Negative Pulmonary History Comment: SEASONAL ALLERGIES - Neurologic History Hx Cerebrovascular Accident: No Hx Seizures: No Hx Dementia: No - Endocrine History Hx Diabetes: No Hypothyroid: Yes Hyperthyroid: No Obesity: mild - Renal History Hx Renal Disorders: No - Liver History Hx Hepatic Disorders: No - Neurological & Psychiatric Hx Hx Neurological and Psychiatric Disorders: No - Cancer History Hx Cancer: Yes Cancer History Comment: 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 wears glasses - Chronic Pain History Chronic Pain: Yes (right knee) - Surgical History Prior Surgeries: 07/18/14 left ARTHUR with Alisson. 09/13/12 RIGHT ARTHUR with Alisson. SAMIR. TONSILLECTOMY. HYSTERECTOMY. CARDIAC STENTS X3. SALIVARY GLAND REMOVAL FOR CANCER ANE Review of Systems Review of Systems: - Exercise capacity METS (RN): 3 METS - Systems Constitutional: Reports: no symptoms Cardiac: Reports: no symptoms Respiratory: Reports: no symptoms Muscolosketal: Reports: joint pain ANE Patient History - Allergies Allergies/Adverse Reactions: codeine [Codeine] Allergy (Verified 12/09/17 11:44) STOMACH PAIN flu shots Allergy (Uncoded 12/09/17 11:44) Anaphylaxis - Home Medications Home Medications: Metoprolol Tartrate [Lopressor 25 mg (*)] 06/29/14 [Last Taken 12/15/17 09:45] Aspirin EC [Aspirin EC 81 mg (*)] 03/21/16 [Last Taken 12/09/17] Ranitidine HCl [Zantac] 03/21/16 [Last Taken 12/15/17 09:45] Thyroid,Pork [[place] Thyroid] 03/21/16 [Last Taken 12/15/17 09:45] Atorvastatin Calcium [Lipitor 10 mg (*)] 12/09/17 [Last Taken 12/14/17] amLODIPine BESYLATE [Norvasc 10 mg (*)] 12/09/17 [Last Taken 12/15/17 09:45] - NPO status NPO Since - Liquids (Date): 12/15/17 NPO Since - Liquids (Time): 11:00 NPO Since - Solids (Date): 12/15/17 NPO Since - Solids (Time): 05:05 - Anes Hx Anes Hx: no prior problems - Smoking Hx Smoking Status: Former smoker - Family Anes Hx Family Anes Hx: neg - N/A Family Hx Anesthesia Complications: none ANE Labs/Vital Signs - Vital Signs Blood Pressure: 134/72 Heart Rate: 72 Respiratory Rate: 16 O2 Sat (%): 92 Height: 157.48 cm Weight: 77.111 kg ANE Physical Exam - Airway Neck exam: FROM Mallampati Score: Class 2 Mouth exam: dentures (partial plates upper and lower) - Pulmonary Pulmonary: clear to auscultation - Cardiovascular Cardiovascular: regular rate and rhythym - ASA Status ASA Status: III ANE Anesthesia Plan Anesthesia Plan: GA w LMA
[2017-12-15] MEDS ORDERED: DEXAMETHASONE 4 MG/ML VIAL ONE (14:59)
[2017-12-15] MEDS ORDERED: LIDOCAINE 2% 2 ML INJ ONE (14:59)
[2017-12-15] MEDS ORDERED: PROPOFOL 200 MG/20 ML VIAL ONE (15:00)
[2017-12-15] MEDS ORDERED: fentaNYL 100 MCG/2 ML INJ ONE (15:00)
[2017-12-15] MEDS ORDERED: ePHEDrine SULFATE 25 MG/5 ML SYR ONE (15:24)
[2017-12-15] MEDS ORDERED: KETOROLAC 30 MG/1 ML SDV ONE (15:35)
[2017-12-15] MEDS ORDERED: ONDANSETRON 4 MG/2 ML VIAL ONE (15:35)
[2017-12-15] MEDS ORDERED: ACETAMINOPHEN 500 MG TAB PO PRN (15:53)
[2017-12-15] MEDS ORDERED: METOCLOPRAMIDE 10 MG/2 ML VIAL IVP PRN (15:53)
[2017-12-15] MEDS ORDERED: ALBUTEROL 3 ML DEYVIAL IH PRN (15:53)
[2017-12-15] MEDS ORDERED: HYDROCODONE/APAP 5/325 TAB PO PRN (15:53)
[2017-12-15] MEDS ORDERED: fentaNYL 100 MCG/2 ML INJ IVP PRN (15:53)
[2017-12-15] MEDS ORDERED: NALOXONE HCL 0.4 MG/ML INJ IVP PRN (15:53)
[2017-12-15] MEDS ORDERED: LR 500 ML IV PRN (15:53)
[2017-12-15] MEDS ORDERED: CYCLOBENZAPRINE 10 MG TAB PO PRN (16:04)
[2017-12-15] MEDS ORDERED: traMADol 50 MG TAB PO PRN (16:04)
[2017-12-15] MEDS ORDERED: BISACODYL 10 MG SUPP PR PRN (16:04)
[2017-12-15] MEDS ORDERED: ONDANSETRON 4 MG/2 ML VIAL IVP PRN (16:04)
[2017-12-15] MEDS ORDERED: POLYETHYLENE GLYCOL 3350 17 GM PKT PO PRN (16:04)
[2017-12-15] MEDS ORDERED: ONDANSETRON DISINTEGRATING 4 MG TAB PO PRN (16:04)
[2017-12-15] MEDS ORDERED: PROMETHAZINE HCL 25 MG/ML INJ IVP PRN (16:04)
[2017-12-15] MEDS ORDERED: MAGNESIUM HYDROXIDE 30 ML UDCUP PO PRN (16:04)
[2017-12-15] MEDS ORDERED: diphenhydrAMINE 25 MG CAP PO PRN (16:04)
[2017-12-15] MEDS ORDERED: TEMAZEPAM 15 MG CAP PO PRN (16:04)
[2017-12-15] MEDS ORDERED: oxyCODONE IR 5 MG TAB PO PRN (16:04)
[2017-12-15] MEDS ORDERED: TAPENTADOL HCL 50 MG TAB PO PRN (16:04)
[2017-12-15] MEDS ORDERED: KETOROLAC 15 MG/1 ML SDV IVP ONE (16:04)
[2017-12-15] MEDS ORDERED: LACTULOSE 20 GM/30 ML UDCUP PO PRN (16:04)
[2017-12-15] MEDS ORDERED: PROMETHAZINE HCL 25 MG SUPPR PR PRN (16:04)
[2017-12-15] MEDS ORDERED: DIPHENOXYLATE/ATROPINE LOMOTIL 1 TAB PO PRN (16:04)
--- NOTE | 2017-12-15 16:04 | POSTOPPROG ---
Post Op Note Date of Operation: 12/15/17 Surgeon: Keerthi Vinson Anesthesia: LMA Pre-op Diagnosis: r mmt/lmt/oa Procedure: r knee scope with partial med/lat meniscectomy with chondroplasty Inf/Abcess present in the surg proc area at time of surgery?: No Depth: Deep Incisional (Fascial) EBL: 50-100
[2017-12-15] MEDS ORDERED: LR 1,000 ML IV SCH (16:30)
[2017-12-15] MEDS ORDERED: traMADol 50 MG TAB ONE (17:34)
[2017-12-15 18:18] VITALS: BP 133/89
[2017-12-15] MEDS ORDERED: FAMOTIDINE 20 MG TAB PO SCH (21:00)
[2017-12-15] MEDS ORDERED: SENNOSIDES/DOCUSATE SODIUM TAB PO SCH (21:00)
[2017-12-15] MEDS ORDERED: ceFAZolin 2 GM/DEXTROSE 100 ML IV SCH (22:00)
--- NOTE | 2017-12-16 05:35 | GOP ---
DATE OF OPERATION: 12/15/2017 SURGEON: Keerthi Vinson MD ANESTHESIA: LMA. 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 PROCEDURE PERFORMED: Right knee arthroscopy with partial medial and partial lateral meniscectomy, ch ondroplasty of all 3 compartments, with synovectomy of all 3 compartments. FINDINGS: INDICATIONS: This is a 77-year-old female with a several-month history of right knee pain worsening with use with time. MRI has revealed tears of the medial and lateral meniscus, as well as some osteo arthritic changes. She wishes to have surgery in order to resolve the problem. DESCRIPTION OF PROCEDURE: Patient brought to the operating room after the right side had been identi fied as the correct side by the patient and nurse physician once in the operating room. She was plac ed under general anesthesia using an LMA. Once asleep, tourniquet placed on the portion of the right thigh and both legs placed in appropriate leg barreto. Right lower extremity was then sterilely prep ped and draped in usual fashion using solution. Once prepped and draped, the limb was exs anguinated, tourniquet inflated to 250 mmHg. An incision was made in the superomedial portion of the knee difficulty. A 2nd incision was made lateral to the patellar tendon between the infe rior pole of the patella and bilateral without difficulty. Inspection of the joint reveal ed an abundant amount of synovium in the suprapatellar pouch and medial and lateral gutter, as well a s the anterior portion of the knee. There were grade 3 chondral changes noted in the patella and gra de 4 chondral changes noted to the extensive amount of the trochlea. Further inspection revealed the ACL to be intact. Inspection of the medial compartment revealed tearing of the posterior horn of th e medial meniscus with some grade 3 chondral changes noted. Inspection of the lateral compartment re vealed some grade 2 chondral changes, but tearing of the body and anterior horn of the lateral menisc us. Therefore, a third incision was made medial to the patellar tendon from the inferior pole of the patella and tibial plateau, alternatingly using a straight biter and a 4.0 mm smooth shaver was used to debride and debulk tears of the medial and lateral meniscus, as well as remove the abundant amoun t of synovium from the anterior part of the knee as well as the suprapatellar pouch and the medial an d lateral gutters. Chondroplasty was done of all 3 compartments for any loose fragments of cartilage , particularly to the trochlea. Once completed, all instruments were removed from the knee with 30 c c of Marcaine infused in the knee joint. The 3 portal sites were closed using 3-0 nylon suture in a [id number]-pe-[id number] type stitch. The wounds were dressed with Xeroform, 4 x 4, wrapped in Kerlix. The t ourniquet was deflated at 31 minutes. The leg was completely undraped in the operating room, tourniq uet removed from the thigh, and an Lai wrap placed around the knee. The left leg was taken out of it s leg barreto. She was placed supine. She was woken up, extubated, transferred onto a stretcher, and sent to recovery room in good condition. TOURNIQUET TIME: 31 minutes. /[id number]/MODL
== END 2017-12-15 18:15 | disposition home or self-care (01) ==
LOC: FSGY 12:39
PROVIDERS: ATTEND Orthopaedic Surgery
PROC: 0SBC4ZZ Excision of Right Knee Joint, Percutaneous Endoscopic Approach (ICD-10-PCS; principal; 2017-12-15 14:30)
DX: S83.241A Other tear of medial meniscus, current injury, right knee, initial encounter (principal); S83.281A Other tear of lateral meniscus, current injury, right knee, initial encounter; X50.0XXA Overexertion from strenuous movement or load, initial encounter; Y92.9 Unspecified place or not applicable; Y93.41 Activity, dancing; M17.11 Unilateral primary osteoarthritis, right knee; I10 Essential (primary) hypertension; E78.5 Hyperlipidemia, unspecified; E03.9 Hypothyroidism, unspecified; I25.10 Atherosclerotic heart disease of native coronary artery without angina pectoris; Z95.5 Presence of coronary angioplasty implant and graft
CPT/HCPCS: J0690; J1100; J1885; J2405; J2704; J3010

== ENCOUNTER → 2018-01-20 | Outpatient (CLI) | payer OTHER | LOC: FIMAGING 08:13 | DX: Z12.31 Encounter for screening mammogram for malignant neoplasm of breast (principal) ==